=== PATIENT | male | born 1995 | race Caucasian/White ===

== ENCOUNTER → 2022-06-18 12:59 | Outpatient (BNVA) | payer OTHER, SELFPAY | PROVIDERS: Visit Provider Psychiatry & Neurology Psychiatry | DX: F33.2 Major depressive disorder, recurrent severe without psychotic features (principal); Z79.899 Other long term (current) drug therapy | CPT/HCPCS: 80053; 80061; 83036; 84443; 85025 ==

== ENCOUNTER 2022-07-09 11:50 | Inpatient (IN) | payer OTHER, SELFPAY ==
--- NOTE | 2022-07-09 12:07 | ED.C_ITS ---
HPI - Psych General: Chief Complaint: Psychiatric Symptoms Stated Complaint: psych eval Time Seen by Provider: 07/09/22 12:07 History of Present Illness: Mr. Mireles is a 26-year-old gentleman with history of depression presenting to the emergency department for suicidal ideation. He reports worsening symptoms more significantly over the past week and finding fever and fevers or reasons that he can think of to not harm himself. He has not developed a specific plan however was close last night. He reports compliance with his medication regimen. Associated psychiatric symptoms including increased sleep, hopelessness, lack of enjoyment. He did recently start Wellbutrin approximately 3 weeks ago however this does not seem to be helping. Intensity symptoms is severe. Firearms are locked up at the house. No other specific changes in health, exacerbating, or alleviating factors identified. Onset (ago): week(s) Duration: getting worse History of same: Yes Relieving factors: none Exacerbating factors: none Associated psychiatric symptoms: depression and suicidal ideation If self harm: admits thoughts of self harm Review of Systems General: Reports: 10 or more systems reviewed and unremarkable except in HPI and below PFSH ED PFSH: Medical History (Updated 07/13/22 @ 00:01 by MASOOD Olivas) Psychiatric care Surgical History (Updated 07/09/22 @ 12:18 by Fernando Galaviz MD) No significant past surgical history Physical Exam Const: COMMON NORMALS: alert GENERAL APPEARANCE: cooperative and well developed HENMT: COMMON NORMALS: normocephalic and atraumatic HEAD & SCALP: normocephalic and atraumatic Eye: COMMON NORMALS: conjunctivae normal CONJUNCTIVA: Yes conjunctivae normal SCLERA: sclerae normal Neck/C-Spine: COMMON NORMALS: supple GENERAL: Yes trachea midline Resp: COMMON NORMALS: clear to auscultation bilaterally EFFORT & INSPECTION: Yes able to speak in complete sentences AUSCULTATION: clear to auscultation bilaterally Cardio: COMMON NORMALS: regular rate and regular rhythm RATE: regular rate RHYTHM: regular rhythm Extremity: GENERAL: Yes normal exam except as noted and No edema Neuro: COMMON NORMALS: moves all extremities SENSORIUM/ORIENTATION: Yes alert and No Orientation impaired Psych: COMMON NORMALS: mental status grossly normal and Normal thought process present THOUGHT PROCESS: Normal thought process present Course Vital Signs: Vital signs: Vital Signs Temperature 97.8 F 07/12/22 11:15 Pulse Rate 90 07/12/22 11:15 Respiratory Rate 16 07/12/22 11:15 Blood Pressure 104/67 07/12/22 11:15 Pulse Oximetry 97 07/12/22 11:15 Oxygen Delivery Me thod 07/12/22 06:00 MDM - Psych Medical Decision Making 26-year-old gentleman presenting for psychiatric assessment. He appears depressed on clinical exam. He is calm and cooperative and nontoxic in appearance. No significant laboratory abnormalities requiring intervention. Toxic ingestions and UDS are negative. Given physical exam and clinical history provided there is no indication for imaging at this time. Based on ED evaluation at this point there is no obvious condition that would preclude the patient from inpatient management of psychiatric concerns/symptoms. The results of ED evaluation were discussed with the patient including plan for admission due to requirement for level of care not available if discharged to prevent significant worsening/deterioration. Patient agreeable with plan. Discussed with psychiatry service who was agreeable to admit patient. Medical Records I reviewed the patient's medical records. Lab Data I reviewed the patient's lab results. 07/09/22 12:47 07/09/22 12:47 Laboratory Results WBC 12.0 10^3/uL (4.0-10.0) H 07/09/22 12:47 RBC 5.00 10^6/uL (4.1-5.3) 07/09/22 12:47 Hgb 14.6 g/dL (11.7-16.6) 07/09/22 12:47 Hct 45.9 % (42.0-52.0) 07/09/22 12:47 MCV 91.8 fl (80-94) 07/09/22 12:47 MCH 29.2 pg (28.0-34.0) 07/09/22 12:47 MCHC 31.8 g/dL (30.0-36.0) 07/09/22 12:47 RDW 12.4 % (12.1-15.1) 07/09/22 12:47 Plt Count 383 10^3/cmm (130-400) 07/09/22 12:47 MPV 8.9 fL (7.4-10.4) 07/09/22 12:47 Neut % (Auto) 57.1 % 07/09/22 12:47 Lymph % (Auto) 29.8 % 07/09/22 12:47 [place] % (Auto) 7.8 % 07/09/22 12:47 Eos % (Auto) 3.1 % 07/09/22 12:47 Baso % (Auto) 0.8 % 07/09/22 12:47 Neut # (Auto) 6.85 10^3/uL (1.8-7.7) 07/09/22 12:47 Lymph # (Auto) 3.6 10^3/uL (0.8-4.8) 07/09/22 12:47 [place] # (Auto) 0.9 10^3/uL (0.2-0.9) 07/09/22 12:47 Eos # (Auto) 0.4 10^3/uL (0.0-0.8) 07/09/22 12:47 Baso # (Auto) 0.1 10^3/uL (0.0-0.1) 07/09/22 12:47 Nucleated RBC % (auto) 0 % 07/09/22 12:47 Nucleated RBCs # 0.0 /100WBC 07/09/22 12:47 Sodium 137 mmol/L (136-145) 07/09/22 12:47 Potassium 4.4 mmol/L (3.5-5.1) 07/09/22 12:47 Chloride 99 mmol/L (98-107) 07/09/22 12:47 Carbon Dioxide 26 mmol/L (22-29) 07/09/22 12:47 Anion Gap 16.4 (5-19) 07/09/22 12:47 BUN 18 mg/dL (6-20) 07/09/22 12:47 Creatinine 0.8 mg/dL (0.7-1.2) 07/09/22 12:47 GFR Calculation 116.0 mL/min (90-130) 07/09/22 12:47 Glucose 91 mg/dL (65-115) 07/09/22 12:47 Calculated Osmolality 285 mOsm/kg (285-295) 07/09/22 12:47 Calcium 9.2 mg/dL (8.5-10.5) 07/09/22 12:47 Total Bilirubin 0.2 mg/dL (0.15-1.2) 07/09/22 12:47 AST 24 U/L (0-40) 07/09/22 12:47 ALT 39 U/L (0-41) 07/09/22 12:47 Alkaline Phosphatase 92 U/L (40-130) 07/09/22 12:47 Total Protein 7.4 g/dL (6.6-8.7) 07/09/22 12:47 Albumin 4.3 g/dL (3.5-5.2) 07/09/22 12:47 Globulin 3.1 g/dL (1.3-4.6) 07/09/22 12:47 TSH 1.53 uIU/mL (0.27-4.20) 07/09/22 12:47 Salicylates < 0.3 mg/dL (3-10) L 07/09/22 12:47 Acetaminophen < 5.0 ug/mL (10-30) L 07/09/22 12:47 Ethyl Alcohol < 10 mg/dL (0-10) 07/09/22 12:47 Discharge Plan Discharge Patient Disposition: Admitted As Inpatient Admit Provider: Reynold Sexton Clinical Impression: Suicidal ideation Condition: Stable Discharge Diet: Regular Discharge Activity: Resume usual activity Coding Level of Care Code ED Hospice Registered Nurse for Mary Herring
[2022-07-09 12:27] VITALS: BP 127/81; PULSE 93; RESP 16; TEMP 36.7; O2SAT 97; BMI 29.6
[2022-07-09 12:55] LABS: Basophils # 0.1 10^3/uL (0.0-0.1); Basophils % 0.8 %; Eosinophils # 0.4 10^3/uL (0.0-0.8); Eosinophils % 3.1 %; Hematocrit 45.9 % (42.0-52.0); Hemoglobin 14.6 g/dL (11.7-16.6); Lymphocytes # 3.6 10^3/uL (0.8-4.8); Lymphocytes % 29.8 %; Mean Corpuscular HGB Conc 31.8 g/dL (30.0-36.0); Mean Corpuscular Hemoglobin 29.2 pg (28.0-34.0); Mean Corpuscular Volume 91.8 fl (80-94); Mean Platelet Volume 8.9 fL (7.4-10.4); Monocytes # 0.9 10^3/uL (0.2-0.9); Monocytes % 7.8 %; Neutrophils # 6.85 10^3/uL (1.8-7.7); Neutrophils % 57.1 %; Nucleated Red Blood Cells % 0 %; Platelet Count 383 10^3/cmm (130-400); Red Cell Distribution Width 12.4 % (12.1-15.1)
[2022-07-09 13:26] LABS: Alanine Aminotransferase 39 U/L (0-41); Albumin Level 4.3 g/dL (3.5-5.2); Alkaline Phosphatase 92 U/L (40-130); Blood Urea Nitrogen 18 mg/dL (6-20); Calcium 9.2 mg/dL (8.5-10.5); Carbon Dioxide 26 mmol/L (22-29); Chloride 99 mmol/L (98-107); Globulin 3.1 g/dL (1.3-4.6); Glucose 91 mg/dL (65-115); Osmolality Calculated 285 mOsm/kg (285-295); Sodium 137 mmol/L (136-145); Thyroid Stimulating Hormone 1.53 uIU/mL (0.27-4.20); Total Bilirubin 0.2 mg/dL (0.15-1.2); Total Protein 7.4 g/dL (6.6-8.7)
[2022-07-09 13:30] LABS: Acetaminophen < 5.0 ug/mL (10-30); Alcohol Level < 10 mg/dL (0-10); Anion Gap 16.4 (5-19); Salicylate < 0.3 mg/dL (3-10)
[2022-07-09 13:31] LABS: Aspartate Amino Transferase 24 U/L (0-40); Potassium 4.4 mmol/L (3.5-5.1)
[2022-07-09 14:23] LABS: Amphetamines Screen Urine Negative (Negative); Barbiturates Screen Urine Negative (Negative); Benzodiazepines Screen Urine Negative (Negative); Cocaine Screen Urine Negative (Negative); Opiate Screen Urine Negative (Negative); PCP Screen Urine Negative (Negative); THC Screen Urine Negative (Negative)
[2022-07-09 15:35] VITALS: BP 113/80; PULSE 95; RESP 16; TEMP 36.8; O2SAT 97
[2022-07-10 06:00] VITALS: RESP 18
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
--- NOTE | 2022-07-10 10:04 | PC.NURSE ---
This nurse called pharmacy approx. [id number] and reported nurs could not pull medication because pt was located in machine. Nurse spoke with pharmacist and he stated it was due to registartion and they would have to re-enter him and place him on neuro-psych; nurse spoke to Xuan in registration and she stated it was done correctly down in regstartion. Nurse notified charge nurse Jevon Skinner and Dr. Sexton.
[2022-07-10] MEDS: escitalopram 10 mg Tablet 20 MG PO (11:45)
[2022-07-10] MEDS: pantoprazole DR 40 mg Tablet PO (11:46)
[2022-07-10 14:00] VITALS: BP 145/78; PULSE 68; RESP 16; TEMP 36.9; O2SAT 98
[2022-07-10 22:00] VITALS: BP 117/75; PULSE 77; RESP 15; TEMP 36.4; O2SAT 96
--- NOTE | 2022-07-11 01:16 | NUR.SHIFT ---
Patient calm & cooperative with assessment, he denies SI/HI/AVH, rates anxiety & depression both 10/11, but better than yesterday . Patient has not had medications on this shift, this RN reinforced that if he needs medication for anxiety, it is available. Patient reports sleeping less today than yesterday. He voices no concerns at this time.
[2022-07-11 06:00] VITALS: BP 94/63; PULSE 80; RESP 16; TEMP 36.8; O2SAT 96
[2022-07-11] MEDS: escitalopram 10 mg Tablet 20 MG PO (08:43)
[2022-07-11] MEDS: pantoprazole DR 40 mg Tablet PO (08:43)
--- NOTE | 2022-07-11 13:01 | P.NPUPN_ITS ---
Subjective NPU Subjective: Patient presented today reporting that he is feeling somewhat better. He was surprised to feel better so quickly. We discussed the possibility of discharge in the morning if he continues to feel increasingly better. He denied any side effects to either medication and reports that he is eating fine and sleeping much better. Mental Status Exam MSE Comments: This is an overweight white male in hospital scrubs with adequate grooming and eye contact. No abnormal movements except for mild psychomotor retardation. Cooperative with exam in mild distress. Speech was decreased rate and volume. Mood described as better, affect congruent. Thought process organized. Thought content: Patient endorsed suicidal ideation but denied homicidal ideation, there were no delusions reported or noted, he denied any auditory or visual hallucinations. Attention and concentration appeared intact and memory appeared reliable but none were formally tested. He is alert and oriented x3. Insight and judgment are fair impulse control limited. Vitals/I&O/Wt Last Vital Signs Temp 98.2 F 07/11/22 06:00 Pulse 80 07/11/22 06:00 Resp 16 07/11/22 06:00 BP 94/63 07/11/22 06:00 Pulse Ox 96 07/11/22 06:00 O2 Del Method 07/11/22 06:00 Data NPU 07/09/22 12:47 07/09/22 12:47 A&P Assessment and plan (1) Suicidal ideation: (2) Major depressive disorder, recurrent severe without psychotic features: (3) Generalized anxiety disorder: Plan This is a 26-year-old white male with a long history of depression and anxiety with recent worsening and increased suicidal ideation who presents open to medication changes. 1. Continue current medication. Increased Lexapro to 30 mg p.o. daily and started Wellbutrin XL 150 mg p.o. every morning. 2. Continue every 15 minute checks for safety. 3. Encourage individual, group and milieu therapies. Involuntary Hold Information 96 Hour Hold: 96 Hour Involuntary Admission: No Attestations NPU Medical Necessity Statement*: Inpatient psychiatric evaluation is medically necessary and the clinically appropriate intervention at this time. We will monitor/initiate medications and make changes as indicated. Likely length of stay 1-3 days. Coding Level of Care Code Acute Code for [facility] Diagnoses Suicidal ideation R45.851 Major depressive disorder, recurrent severe without psychotic features F33.2 Generalized anxiety disorder F41.1
[2022-07-11 14:00] VITALS: BP 112/67; PULSE 58; RESP 16; TEMP 36.6; O2SAT 98
[2022-07-11 22:00] VITALS: BP 116/69; PULSE 95; RESP 16; TEMP 36.7; O2SAT 97
[2022-07-12 06:00] VITALS: BP 104/67; PULSE 90; RESP 16; TEMP 36.6; O2SAT 97
[2022-07-12] MEDS: escitalopram 10 mg Tablet 20 MG PO (08:57)
[2022-07-12] MEDS: pantoprazole DR 40 mg Tablet PO (08:57)
[2022-07-12] MEDS: buPROPion XL (24 HR) 150 mg Tablet PO (08:57)
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
[2022-07-12 11:15] VITALS: BP 104/67; PULSE 90; RESP 16; TEMP 36.6; O2SAT 97
--- NOTE | 2022-07-12 11:37 | PC.NURSE ---
Discharge information reviewed with pt, including prescriptions. Pt aware he is to take 30 mg Lexapro daily. Pt said he had 20 mg tablets at home. Pt verbalized his understanding; said he had no questions. Pt states he feels good to go home. Denied thoughts of hurting himself or others. Awaiting prescriptions from the pharmacy and then pt will call his ride.
--- NOTE | 2022-07-12 12:05 | PC.NURSE ---
Ride here. Pt provided his clothes, belongings, and his prescriptions. Pt stated he felt okay to leave. No home meds to return. Pt left ambulatory with belongings, accompanied by .
== END 2022-07-12 12:08 | disposition home or self-care (01) | DRG 885 ==
LOC: ER 12:50 → NP 15:07
PROVIDERS: Admitting Provider Psychiatry & Neurology Psychiatry; Emergency Provider Emergency Medicine; PCP Nurse Practitioner Family; Visit Provider Psychiatry & Neurology Psychiatry
DX: F33.2 Major depressive disorder, recurrent severe without psychotic features (principal); R45.851 Suicidal ideations; F17.290 Nicotine dependence, other tobacco product, uncomplicated; F41.1 Generalized anxiety disorder
CPT/HCPCS: 36415; 80053; 80306; 80307; 84443; 85025; 97165; 99238; 99285

== ENCOUNTER → 2022-10-30 16:50 | Outpatient (BNVA) | payer OTHER, SELFPAY | PROVIDERS: PCP Nurse Practitioner Family; Visit Provider Registered Nurse | DX: Z79.899 Other long term (current) drug therapy (principal) | CPT/HCPCS: 80053; 80061; 80164; 82306; 82607; 85025 ==